=== PATIENT | female | born 1945 | race Caucasian/White ===

== ENCOUNTER → 2017-09-10 10:22 | Outpatient (CLI) | payer MEDICARE, OTHER | END | disposition home or self-care (01) | LOC: D.CT 10:22 | DX: R10.9 Unspecified abdominal pain (principal) ==

== ENCOUNTER → 2018-03-16 10:58 | Outpatient (CLI) | payer MEDICARE, OTHER | END | disposition home or self-care (01) | LOC: D.CT 10:58 | DX: K56.609 Unspecified intestinal obstruction, unspecified as to partial versus complete obstruction (principal) ==